=== PATIENT | male | born 1970 | race African-American/Black ===

== ENCOUNTER 2019-08-19 13:35 | Observation (INO) | payer OTHER ==
[2019-08-19 14:28] VITALS: BMI 18.0
[2019-08-19 15:01] LABS: ALT (SGPT) 162 U/L (8-55); AST (SGOT) 221 U/L (5-34); Albumin 3.2 g/dL (3.5-5.0); Alkaline Phosphatase 1494 U/L (40-110); Anion Gap 18 mmol/L (10-20); BUN (Urea Nitrogen) 13 mg/dL (8.9-20.6); Calc. Creatinine Clearance 71 mL/min (70-130); Calcium 9.7 mg/dL (7.8-10.44); Carbon Dioxide 19 mmol/L (22-29); Chloride 101 mmol/L (98-107); Estimated GFR-MDRD Greater than 90; Globulin 4.4 g/dL (2.4-3.5); Glucose 102 mg/dL (70-105); Potassium 4.2 mmol/L (3.5-5.1); Protein, Total 7.6 g/dL (6.0-8.3); Sodium 134 mmol/L (136-145)
[2019-08-19] MEDS: Sodium Chloride 0.9% 10 ML ONE (16:21)
[2019-08-19 16:22] LABS: Hemoglobin 7.5 g/dL (14.0-18.0); Mean Corpuscular HGB CONC 31.9 g/dL (32.0-36.0); Mean Corpuscular Hemoglobin 28.4 pg (27.0-31.0); Mean Corpuscular Volume 88.9 fL (78.0-98.0); Mean Platelet Volume 6.7 fL (7.4-10.4); Platelet Count 490 thou/uL (130-400); RBC Distribution Width 14.5 % (11.5-14.5); Red Blood Cell (RBC) Count 2.64 mill/uL (4.70-6.10)
[2019-08-19 16:56] LABS: Anisocytosis SLIGHT = 6-15 cells (100X) (0-5/hpf); Band 2 % (5-11); Hypochromia MODERATE=16-30 cells (100X) (0-5/hpf); Lymphocytes 14 % (21-51); MDiff Complete? YES; Monocytes 5 % (0-10); Neutrophil 79 % (42-75); Platelet Morphology Comment Appears Increased
[2019-08-19] MEDS ORDERED: Acetaminophen/Codeine 30-300mg Tablet PO PRN (19:12)
[2019-08-19] MEDS ORDERED: Docusate 100 MG CAP PO PRN (19:12)
[2019-08-19] MEDS: Furosemide 20 MG/2 ML VIAL SLOW IVP SCH (19:49)
[2019-08-20 00:13] LABS: #Basophils 0.1 thou/uL (0.0-0.2); #Eosinphils 0.2 thou/uL (0.0-0.7); #Lymphocytes 1.7 thou/uL (1.20-3.40); #Monocytes 1.2 thou/uL (0.11-0.59); #Neutrophils 13.5 thou/uL (1.40-6.50); %Basophils 0.4 % (0.0-1.0); %Lymphocytes 10.1 % (21.0-51.0); %Monocytes 7.2 % (0.0-10.0); %Neutrophils 81.3 % (42.0-75.0); Anisocytosis MODERATE=16-30 cells (100X) (0-5/hpf); Band 16 % (5-11); Hemoglobin 9.5 g/dL (14.0-18.0); Hypochromia MODERATE=16-30 cells (100X) (0-5/hpf); Lymphocytes 17 % (21-51); MDiff Complete? YES; Mean Corpuscular HGB CONC 32.4 g/dL (32.0-36.0); Mean Corpuscular Volume 86.2 fL (78.0-98.0); Mean Platelet Volume 6.7 fL (7.4-10.4); Monocytes 2 % (0-10); Neutrophil 65 % (42-75); Nucleated RBC 1 % (0); Platelet Count 401 thou/uL (130-400); Platelet Morphology Comment Appears Adequate; RBC Distribution Width 14.7 % (11.5-14.5); Red Blood Cell (RBC) Count 3.38 mill/uL (4.70-6.10); Target Cells SLIGHT = 2-5 cells (100X) (0-1/hpf); White Blood Cell (WBC) Count 16.6 thou/uL (4.8-10.8)
[2019-08-20 05:45] LABS: ALT (SGPT) 146 U/L (8-55); AST (SGOT) 190 U/L (5-34); Alkaline Phosphatase 1406 U/L (40-110); Anion Gap 14 mmol/L (10-20); BUN (Urea Nitrogen) 11 mg/dL (8.9-20.6); Bilirubin, Total 23.8 mg/dL (0.2-1.2); Calc. Creatinine Clearance 65 mL/min (70-130); Calcium 9.6 mg/dL (7.8-10.44); Carbon Dioxide 20 mmol/L (22-29); Chloride 103 mmol/L (98-107); Estimated GFR-MDRD Greater than 90; Globulin 3.9 g/dL (2.4-3.5); Glucose 94 mg/dL (70-105); Potassium 3.9 mmol/L (3.5-5.1); Protein, Total 6.9 g/dL (6.0-8.3); Sodium 133 mmol/L (136-145)
[2019-08-20 06:06] LABS: Anisocytosis MODERATE=16-30 cells (100X) (0-5/hpf); Band 1 % (5-11); Hemoglobin 9.9 g/dL (14.0-18.0); Hypochromia MODERATE=16-30 cells (100X) (0-5/hpf); Lymphocytes 8 % (21-51); MDiff Complete? YES; Mean Corpuscular HGB CONC 32.9 g/dL (32.0-36.0); Mean Corpuscular Hemoglobin 28.2 pg (27.0-31.0); Mean Corpuscular Volume 85.9 fL (78.0-98.0); Mean Platelet Volume 6.9 fL (7.4-10.4); Monocytes 7 % (0-10); Neutrophil 84 % (42-75); Platelet Count 435 thou/uL (130-400); RBC Distribution Width 14.3 % (11.5-14.5); Red Blood Cell (RBC) Count 3.52 mill/uL (4.70-6.10); Target Cells SLIGHT = 2-5 cells (100X) (0-1/hpf); White Blood Cell (WBC) Count 16.9 thou/uL (4.8-10.8)
[2019-08-20 12:39] VITALS: BP 105/60; TEMP 98.6
--- NOTE | 2019-08-21 05:13 | SS ---
DATE OF ADMISSION: 08/19/2019 DATE OF DISCHARGE: 08/20/2019 PRIMARY DIAGNOSIS: Recent diagnosis of rectal carcinoma for blood transfusion. BRIEF HISTORY: This is a 48-year-old male who apparently was diagnosed with rectal cancer 3 weeks ago when he started noticing blood in his stool. He apparently is getting a complete workup done before starting on any treatment. He apparently saw his radiation oncologist who advised him to get a blood transfusion and sent orders here. Unfortunately, the radiation oncologist does not have any privileges here, so the hospital call me to see if I would accept the patient. The patient had a hemoglobin of 8.5, but the radiation oncologist still wanted to transfuse him, so he was given 1 unit of blood. Followup H and H shows a hemoglobin of 9.5 yesterday and 9.9 today. The patient denies any further rectal bleeding. He denies any lightheadedness or dizziness. He denies any chest pain or shortness of breath. He wants to go home. He states that he just takes the pain medication, Tylenol No. 3 as needed and Colace and he has prescriptions for both. The patient has followup appointment with his radiation oncologist. PAST MEDICAL HISTORY: Nothing significant. PAST SURGICAL HISTORY: Eye surgery as a child. PSYCHOSOCIAL HISTORY: The patient apparently smokes about half a pack of cigarettes a day and has been doing so for 30 years. Social alcohol intake. Denies any recreational drug abuse. FAMILY HISTORY: Positive for hypertension in his mother. REVIEW OF SYSTEMS: CARDIOVASCULAR: Denies any chest pain, shortness of breath, palpitations, PND, orthopnea, or pedal edema. RESPIRATORY: Denies any chronic cough, expectoration, or pleuritic type chest pain. GASTROINTESTINAL: Denies any nausea, vomiting, diarrhea, constipation, hematemesis, melena, or hematochezia. GENITOURINARY: Denies any frequency, urgency, dysuria, or hematuria. CENTRAL NERVOUS SYSTEM: No focal numbness, weakness, or fainting spells. HEENT: Denies any difficulty with speech, vision, hearing, or swallowing. SKIN: Denies any rash. PHYSICAL EXAMINATION: GENERAL: Pleasant 48-year-old male, in no apparent distress. He is resting comfortably in bed. Alert, awake, and oriented x3. No family at bedside. VITAL SIGNS: He is afebrile. Heart rate 84, respirations 18, oxygen saturation 99% on room air, and blood pressure 101/59. HEENT: Normocephalic and atraumatic. Icterus noted in both his eyes. No JVD, thyromegaly, cervical lymphadenopathy, or throat exudates. No carotid bruits. CARDIOVASCULAR: S1, S2 plus. Rate and rhythm regular. RESPIRATORY: Normal vesicular breath sounds heard in all lung wells. ABDOMEN: Soft, scaphoid, nontender. Bowel sounds heard in all quadrants. EXTREMITIES: Without cyanosis, clubbing, or edema. Peripheral pulses are palpable. CENTRAL NERVOUS SYSTEM: Awake and responsive. Cranial nerves 2 through 12 are intact. Grossly nonfocal. LABORATORY DATA: Laboratory values show a sodium of 133, potassium 3.9, BUN and creatinine are 11 and 1.03. AST and ALT are elevated at 190 and 146 with an alkaline phosphatase of 1406. White count is 16.9, H and H are 9.9 and 30.2, platelet count is 435, this is this morning. On admission, white count was 16, with H and H of 7.5 and 23.5. Bilirubin is 23.8. IMPRESSION: 1. Recent diagnosis of rectal cancer with possible mets to the liver, just looking at his blood work, but I do not have any imaging results. The patient does not want us to do any further workup. He wants to just go back to his physician. He is aware of the risks.. 2. Anemia. Ordered blood transfusion by his radiation oncologist. Much improved with blood transfusion. 3. Hyponatremia. 4. Tobacco abuse. 5. Leukocytosis, unknown etiology. 6. Elevated hepatocellular and canalicular liver function tests. The patient does not want any further workup here. He wants to follow up with his doctors and have them do the workup. PLAN: 1. Discharge to home per patient's request. The patient is aware of the risks. 2. Outpatient followup with PCP and his specialist. 3. The patient was advised to return back to the emergency room if he changes his mind or if he has any other issues. 4. He does not need any prescriptions. Discharge medications will be his Tylenol with Codeine and his Colace. 5. No family at bedside. 6. Discussed with the patient in detail. All questions answered. Job ID: [id number]
== END 2019-08-20 13:40 | disposition home or self-care (01) ==
LOC: NAV ACUTE 13:35
PROVIDERS: ADMIT Internal Medicine; ATTEND Internal Medicine
DX: C20 Malignant neoplasm of rectum (principal); D64.9 Anemia, unspecified; F17.210 Nicotine dependence, cigarettes, uncomplicated; E87.1 Hypo-osmolality and hyponatremia; D72.829 Elevated white blood cell count, unspecified
CPT/HCPCS: 36430; 80053; 85007; 85027; 86850; 86900; 86901; G0378; J1940; P9016

== ENCOUNTER 2019-10-06 10:28 | Observation (INO) | payer OTHER ==
[2019-10-06 10:44] VITALS: BMI 16.7
[2019-10-06] MEDS: Sodium Chloride 0.9% 50 ML ONE (12:55)
[2019-10-06] MEDS: Sodium Chloride 0.9% 250 ML 250 ML IVPB SCH (13:45)
[2019-10-06] MEDS: Furosemide 20 MG/2 ML VIAL SLOW IVP SCH (16:05)
[2019-10-06] MEDS ORDERED: Loperamide HCl 2 MG CAP PO PRN (18:28)
[2019-10-06] MEDS: Loperamide HCl 2 MG CAP PO PRN (18:39)
[2019-10-06 19:24] VITALS: BP 113/81; TEMP 99
[2019-10-06 20:02] LABS: Hemoglobin 10.2 g/dL (14.0-18.0)
--- NOTE | 2019-10-06 22:01 | HP ---
HISTORY OF PRESENT ILLNESS: Mr. Au is a 48-year-old male, who presented to the hospital this morning with orders for blood transfusion from [facility] in [place], [place]. Apparently, the patient has a history of rectal carcinoma with metastasis to the lung and liver. He states he has been feeling very weak and he saw his Oncologist, who referred him here to the hospital for blood transfusions of 2 units of packed red blood cells. CBC was done, which revealed a hemoglobin of 8. We contacted the patient's Oncologist, who states that they would like to have a blood transfusion to get him up to 10, so they can continue his therapy. It is noted the patient recently had an admission to [facility] in [place] with acute kidney injury and received a nephrology consult. He also had pulmonary problems and had a pulmonary consult. He also had a palliative care consultation. REVIEW OF SYSTEMS: CONSTITUTIONAL: The patient denies fever, chills, or night sweats. He states he has been feeling somewhat tired. HEENT: He denies any change in vision or hearing. RESPIRATORY: Denies any change in respiratory status including cough, congestion, shortness of breath, or dyspnea on exertion. CARDIOVASCULAR: He denies any chest pain, palpitations, rapid or irregular heartbeat. GI: He states he has lost his appetite. He has lost some weight. He has occasional constipation. He states his stomach feels full, but otherwise he feels okay. Denies any dysuria, polyuria, frequency, urgency, or nocturia. MUSCULOSKELETAL: He denies any significant musculoskeletal pain, arthritis, or swelling. SKIN: Denies any skin rashes or skin lesions. NEUROLOGIC: He does complain of weakness, but no episodes of falling down. He denies any anxiety, or depressive disorder. FAMILY HISTORY: Noncontributory. SOCIAL HISTORY: The patient does smoke and does drink and smokes about half a pack per day. PHYSICAL EXAMINATION: VITAL SIGNS: On admission reveal blood pressure of 109/76, pulse 78, respirations 18, O2 saturation 100%, T-max 97.5. GENERAL: Reveals a well-developed, well-nourished, but thin male. HEENT: Normocephalic, nontraumatic cranium. The pupils are equally round. The patient had previous icterus, but seems to be cleared. Apparently, the patient did have a transfer to [facility] for ERCP for stent placement, but I have not received any records on that. Nose and throat are somewhat dry. NECK: Supple without masses, nodes, or bruits. No jugular venous distention is noted. CHEST: Clear to auscultation. No rales, rhonchi, wheezes, or cough is heard. HEART: Reveals a regular rate and rhythm without murmurs, gallops, or rubs. ABDOMEN: Reveals an easily palpated liver on the right side. The patient also has nodules throughout his abdomen, especially near the xiphoid process. Normal bowel sounds are noted. The patient denies any tenderness, just fullness. The patient does have an enlarged right inguinal nerve node. GENITOURINARY: Deferred. EXTREMITIES: Reveal no clubbing, cyanosis, or edema. LABORATORY DATA: Laboratories today reveal hemoglobin after transfusion 10.2 with hematocrit 32.3. Labs were apparently done at [facility], but not forwarded to us. Recent labs done most likely at [place] reveals sodium 137, potassium 3.9. AST of 46, ALT of 15, total bilirubin on the was 6.7. Direct bilirubin was greater than 20. Ammonia level was greater than 925 on the 04 of September. The patient's albumin was noted to be 2.5. CEA was 52.7 on September 01. ASSESSMENT: 1. Rectal adenocarcinoma. 2. Diffuse metastatic disease involving lung and the liver and inguinal nodes. 3. The patient recently was admitted to [facility] with acute renal failure and hepatic failure with encephalopathy. He was transferred to [facility] because of biliary obstruction for an ERCP and placement of possible stent. The patient does not know if he had that done at all. His renal function after hydration and bicarb drip did improve. 4. The patient is followed by [facility] in [place], [place]. RECOMMENDATIONS: 1. The patient will be transfused 2 units and will be placed on observation. 2. The patient has had palliative care recommendations in the past. The patient has no family accompanying him today. The patient is unable to make any choices on his own otherwise. Job ID: [id number]
[2019-10-07] MEDS ORDERED: FLU VACC QS2019-20(6MOS UP)/PF 60 MCG/0.5 ML SYRINGE IM ONE (09:00)
[2019-10-07] MEDS ORDERED: Prevnar 13-Val Conj/PF 0.5 ML SYRINGE IM ONE (09:00)
--- NOTE | 2019-10-07 13:49 | DIS ---
DATE OF ADMISSION: 10/06/2019 DATE OF DISCHARGE: 10/06/2019 Mr. Au is a 48-year-old male, who presented to the ER with orders for blood transfusion from [facility] in [place], [place]. The patient has a history of rectal carcinoma with metastasis to the lungs and liver. He has multiple metastasis all over. He is feeling very weak. His oncologist saw him and referred him to the hospital for blood transfusions, 2 units of packed red blood cells. Apparently, the patient has been seen by Dr. Roth in the past and states that he is Dr. Roth's patient. CBC was done in the ER, which revealed hemoglobin 8. We did contact his oncologist at [facility] and he recommended that we give him 2 units of packed red blood cells, so that he can get to a hemoglobin of 10, so that he will feel better and they can continue his care. The patient did receive 2 units of packed red blood cells and did very well. His hemoglobin post transfusion at 2001 hours was 10.2 and his hematocrit was 32.3. The patient states he felt well and requested to be discharged. The patient was stable and we did discharge the patient and recommended that he follow up with his oncologist within the next couple of days. Discharged from observation. Job ID: [id number]
== END 2019-10-06 20:51 | disposition home or self-care (01) ==
LOC: NAV ACUTE 10:28
PROVIDERS: ADMIT Family Medicine; ATTEND Family Medicine
PROC: 30233N1 Transfusion of Nonautologous Red Blood Cells into Peripheral Vein, Percutaneous Approach (ICD-10-PCS; principal; 2019-10-06)
DX: C20 Malignant neoplasm of rectum (principal); C78.7 Secondary malignant neoplasm of liver and intrahepatic bile duct; C78.00 Secondary malignant neoplasm of unspecified lung; C77.4 Secondary and unspecified malignant neoplasm of inguinal and lower limb lymph nodes; F17.210 Nicotine dependence, cigarettes, uncomplicated
CPT/HCPCS: 36430; 86850; 86900; 86901; G0378; J1940; J7050; P9016

== ENCOUNTER 2019-10-23 14:28 | Outpatient (CLI) | payer OTHER ==
--- NOTE | 2019-10-23 15:07 | RAD ---
EXAM: XR Neck Soft Tissue DATE: 10/23/2019 2:48 PM INDICATION: Neck pain COMPARISON: None FINDING: Tracheal air column appears within normal limits. Prevertebral soft tissues are normal appe aring. Visualized epiglottis and aryepiglottic folds appear within normal limits. There is partial visualization right chest wall port. Lung apices are clear. IMPRESSION:No acute abnormality
--- NOTE | 2019-10-23 15:20 | RAD ---
CERVICAL SPINE 4 VIEWS: HISTORY: Neck pain. COMPARISON: No comparison. FINDINGS: Mild anterior wedging of C3, C4, and C5 vertebrae with degenerative spurring anteriorly. Mild wedgin g appears old. Findings are slightly more pronounced at C5. Posterior spondylosis at C3-4, C4-5, an d C5-6. Disk spaces are preserved with mild loss of disk space at C3-4. IMPRESSION: Degenerative changes. Mild wedging at C3, C4, and C5 vertebrae with hypertrophic changes. Findings appear to be chronic; however, consider MRI cervical spine to assess edema if there is concern of acu te compression. POS: OFF
== END 2019-10-23 14:29 | disposition home or self-care (01) ==
LOC: NAV RAD 14:28
PROVIDERS: ATTEND Radiology Body Imaging
DX: M54.2 Cervicalgia (principal); K62.5 Hemorrhage of anus and rectum; C20 Malignant neoplasm of rectum; C78.7 Secondary malignant neoplasm of liver and intrahepatic bile duct; M47.812 Spondylosis without myelopathy or radiculopathy, cervical region; M48.52XA Collapsed vertebra, not elsewhere classified, cervical region, initial encounter for fracture
CPT/HCPCS: 70360; 72040